=== PATIENT | female | born 1980 | race Caucasian/White ===

== ENCOUNTER 2019-10-30 16:51 | Emergency (ER) | payer MEDICAID ==
[~2019-10-30] VITALS: Ht 165.1 cm; Wt 72.7 kg
[2019-10-30 20:11] VITALS: BP 139/71
== END 2019-10-30 20:04 | disposition home or self-care (01) ==
LOC: ER 16:52
DX: Z00.00 Encounter for general adult medical examination without abnormal findings (principal); F15.90 Other stimulant use, unspecified, uncomplicated; Z86.19 Personal history of other infectious and parasitic diseases; Z72.89 Other problems related to lifestyle; Z59.0 Homelessness
CPT/HCPCS: 99281

== ENCOUNTER 2024-07-22 11:13 | Emergency (ER) | payer MEDICAID ==
[~2024-07-22] VITALS: Ht 165.1 cm; Wt 79.5 kg
[2024-07-22 11:20] VITALS: BP 134/85; PULSE 18; RESP 16; TEMP 97.8; O2SAT 98
[2024-07-22 13:55] LABS: SYPHILIS SCREENING TEST POC POSITIVE (Negative)
[2024-07-22] MEDS: PENICILLIN G BENZATHINE 2,400,000 UNIT/4 ML SYRINGE IM ONE (14:30)
[2024-07-22 14:57] LABS: HIV ANTIBODY 1&2 RAPID NON-REACTIVE (Neg)
[2024-07-22] MEDS ORDERED: DOXY-1 PO (15:02)
[2024-07-25 13:11] LABS: CHLAMYDIA TRACHOMATIS, NAA Negative (Negative)
== END 2024-07-22 15:11 | disposition home or self-care (01) ==
LOC: ER 11:14
DX: Z20.2 Contact with and (suspected) exposure to infections with a predominantly sexual mode of transmission (principal); F15.90 Other stimulant use, unspecified, uncomplicated
CPT/HCPCS: 36415; 86592; 86703; 87210; 87491; 87591; 96372; 99283; J0561

== ENCOUNTER 2024-08-07 16:55 | Emergency (ER) | payer MEDICAID ==
[2024-08-08] MEDS ORDERED: DOXY150T3 PO (13:56)
== END 2024-08-07 18:41 | disposition left against medical advice (07) ==
LOC: ER 16:55
DX: R10.2 Pelvic and perineal pain (principal); Z53.21 Procedure and treatment not carried out due to patient leaving prior to being seen by health care provider

== ENCOUNTER 2024-08-08 09:50 | Emergency (ER) | payer MEDICAID ==
[~2024-08-08] VITALS: Ht 165.1 cm; Wt 84.1 kg
[2024-08-08 09:57] VITALS: BP 114/47; PULSE 78; RESP 15; TEMP 97.2; O2SAT 98
[2024-08-08 10:46] LABS: BILIRUBIN,URINE NEGATIVE (Neg); CLARITY,URINE CLEAR (Clear); COLOR,URINE STRAW (Yellow); GLUCOSE, URINE NEGATIVE (Neg); KETONES,URINE NEGATIVE (Neg); LEUKOCYTE ESTERASE ,URINE MODERATE (Neg); NITRITES, URINE NEGATIVE (Neg); OCCULT BLOOD,URINE NEGATIVE (Neg); PH,URINE 6.5 (4.8-8.0); PROTEIN,URINE NEGATIVE (Neg); UROBILINOGEN,URINE 0.2 E.U/dL (0.2-1.0)
[2024-08-08 10:49] LABS: UA COLLECTION TYPE CLN CATCH MIDSTREAM
[2024-08-08 10:58] LABS: BACTERIA,URINE FEW /HPF (Neg); MUCUS STRANDS NONE SEEN /LPF (Neg); RBC,URINE 0-2 /HPF (0-2); SQUAMOUS EPITHELIAL CELL,UR FEW /LPF (FEW)
[2024-08-08] MEDS ORDERED: DOXY150T3 PO (13:56)
== END 2024-08-08 12:02 | disposition left against medical advice (07) ==
LOC: ER 09:51
DX: A64 Unspecified sexually transmitted disease (principal); N73.8 Other specified female pelvic inflammatory diseases; F17.200 Nicotine dependence, unspecified, uncomplicated; F15.90 Other stimulant use, unspecified, uncomplicated; Z72.89 Other problems related to lifestyle; Z59.00 Homelessness unspecified
CPT/HCPCS: 81001; 87088; 99283